=== PATIENT | female | born 1990 | race Caucasian/White ===

== ENCOUNTER 2018-12-24 17:22 | Emergency (ER) | payer OTHER ==
--- NOTE | 2018-12-24 18:43 | ER Document Report ---
ED Medical Screen (RME) - General Chief Complaint: Abdominal Pain Stated Complaint: ABDOMINAL PAIN Time Seen by Provider: 12/24/18 18:39 Mode of Arrival: Ambulatory Information source: Patient Notes: This 28-year-old female presents emergency department with complaints of lower abdominal pain that started this morning. She reports some vaginal spotting. Patient is approximately 9 weeks. G6, P1. Patient has had 4 miscarriages. She denies other symptoms such as fever vomiting diarrhea. She denies pain with void. She reports she was diagnosed with a subchorionic bleed last week. I have greeted and performed a rapid initial assessment of this patient. A comprehensive ED assessment and evaluation of the patient, analysis of test results and completion of the medical decision making process will be conducted by additional ED providers. Dictation of this chart was performed using voice recognition software; therefore, there may be some unintended grammatical errors. TRAVEL OUTSIDE OF THE [place] IN LAST 30 DAYS: No - Related Data Allergies/Adverse Reactions: No Known Allergies Allergy (Unverified 12/24/18 17:36) Physical Exam - Vital signs Vitals: Temp Pulse Resp BP Pulse Ox 98.0 F 83 20 134/82 H 97 12/24/18 17:40 12/24/18 17:40 12/24/18 17:40 12/24/18 17:40 12/24/18 17:40 Course - Vital Signs Vital signs: Temp Pulse Resp BP Pulse Ox 98.0 F 83 20 134/82 H 97 12/24/18 17:40 12/24/18 17:40 12/24/18 17:40 12/24/18 17:40 12/24/18 17:40
[2018-12-24 19:31] LABS: ABSOLUTE EOSINOPHILS # (AUTO) 0.1 10^3/uL (0.0-0.6); ABSOLUTE LYMPHOCYTES (AUTO) 1.8 10^3/uL (0.5-4.7); ABSOLUTE MONOCYTES (AUTO) 0.4 10^3/uL (0.1-1.4); ABSOLUTE NEUT (AUTO) 3.8 10^3/uL (1.7-8.2); BASOPHILS % (AUTO) 0.2 % (0-2); EOSINOPHILS % (AUTO) 1.9 % (0-6); HEMATOCRIT 38.7 % (36.0-47.0); HEMOGLOBIN 13.4 g/dL (12.0-15.5); MEAN CORPUSCULAR HEMOGLOBIN 30.4 pg (27.0-33.4); MEAN CORPUSCULAR HGB CONC 34.5 g/dL (32.0-36.0); MEAN CORPUSCULAR VOLUME 88 fl (80-97); MONOCYTES % (AUTO) 6.3 % (3-13); PLATELET COUNT 140 10^3/uL (150-450); RED CELL DISTRIBUTION WIDTH 13.9 % (11.5-14.0); SEGMENTED NEUTROPHILS % (AUTO) 62.6 % (42-78); TOTAL CELLS COUNTED % (AUTO) 100 %
[2018-12-24 19:41] LABS: APPEARANCE,URINE CLEAR; BILIRUBIN,URINE NEGATIVE (NEGATIVE); COLOR,URINE YELLOW; GLUCOSE, URINE NEGATIVE (NEGATIVE); KETONES,URINE NEGATIVE (NEGATIVE); LEUKOCYTE ESTERASE,URINE NEGATIVE (NEGATIVE); NITRITE,URINE NEGATIVE (NEGATIVE); PROTEIN,URINE NEGATIVE (NEGATIVE); URINE SPECIFIC GRAVITY 1.027; UROBILINOGEN,URINE NEGATIVE mg/dL (<2.0)
[2018-12-24 19:54] LABS: ALBUMIN 4.4 g/dL (3.5-5.0); ALKALINE PHOSPHATASE 45 U/L (38-126); ANION GAP 10 (5-19); ASPARTATE AMINO TRANSFERASE 18 U/L (14-36); BILIRUBIN,DIRECT 0.3 mg/dL (0.0-0.4); BILIRUBIN,TOTAL 0.3 mg/dL (0.2-1.3); BLOOD UREA NITROGEN 13 mg/dL (7-20); CARBON DIOXIDE 23 mmol/L (22-30); CHLORIDE 104 mmol/L (98-107); GLUCOSE 100 mg/dL (75-110); POTASSIUM 3.6 mmol/L (3.6-5.0)
--- NOTE | 2018-12-24 21:31 | RADIOLOGY REPORT (SQ) ---
US PELVIS EXAM DATE: 12/24/2018 6:42 PM CDT HISTORY: Early . Pelvic pain. COMPARISON: None. TECHNIQUE: Grayscale, color Doppler, and spectral Doppler ultrasound images of the pelvis were obtained. FINDINGS: There is an intrauterine gestational sac with a yolk sac and pole visualized. The crown-rump length measures 2.34 cm, corresponding to 9 weeks 0 days of . The heart rate is 165 bpm. There is a 1.9 cm adjacent subchorionic hemorrhage. Both ovaries are normal in size and contain normal follicles, with the right ovary measuring 4.1 cm, and the left ovary measuring 4.6 cm. Normal color Doppler blood flow is seen in both ovaries. No pelvic free fluid. IMPRESSION: 1. Single live IUP with estimated gestational age 9 weeks 0 days. 2. Small adjacent subchorionic hemorrhage; attention on follow-up imaging is suggested.
[2018-12-24] MEDS ORDERED: ACETAMINOPHEN 325 MG TABLET PO ONE (21:41)
[2018-12-24 21:43] VITALS: BP 119/66
--- NOTE | 2018-12-24 22:08 | ER Document Report ---
ED General - General Chief Complaint: Abdominal Pain Stated Complaint: ABDOMINAL PAIN Time Seen by Provider: 12/24/18 18:39 Mode of Arrival: Ambulatory TRAVEL OUTSIDE OF THE [place] IN LAST 30 DAYS: No - HPI Notes: Patient is a 28-year-old female approximately 9 weeks gestation who presents emergency department for evaluation of vaginal bleeding and lower abdominal pain. Pain started today. She has had some intermittent vaginal bleeding. Is bright red, scant, usually more when she sits down. She was diagnosed with a subchorionic hemorrhage. She denies any other vaginal discharge. No fever chills. No nausea or vomiting. Taking her vitamin as instructed. - Related Data Allergies/Adverse Reactions: No Known Allergies Allergy (Unverified 12/24/18 17:36) Home Medications: vitamin Past Medical History - General Information source: Patient - Social History Smoking Status: Current Some Day Smoker Chew tobacco use (# tins/day): No Frequency of alcohol use: None Drug Abuse: None Family History: Reviewed & Not Pertinent Patient has suicidal ideation: No Patient has homicidal ideation: No Renal/ Medical History: Denies: Hx Peritoneal Dialysis Past Surgical History: Reports: Hx Cholecystectomy Review of Systems - Review of Systems Constitutional: No symptoms reported EENT: No symptoms reported Cardiovascular: No symptoms reported Respiratory: No symptoms reported Gastrointestinal: No symptoms reported Genitourinary: No symptoms reported Female Genitourinary: See HPI Musculoskeletal: No symptoms reported Skin: No symptoms reported Neurological/Psychological: No symptoms reported Physical Exam - Vital signs Vitals: Temp Pulse Resp BP Pulse Ox 98.0 F 83 20 134/82 H 97 12/24/18 17:40 12/24/18 17:40 12/24/18 17:40 12/24/18 17:40 12/24/18 17:40 - Notes Notes: Vital signs reviewed, please refer to chart. Head is normocephalic, atraumatic. Pupils equal round, reactive to light. Neck is supple without meningismus. Heart is regular rate and rhythm. Lungs are clear to auscultation bilaterally. Abdomen is soft, nontender, normoactive bowel sounds throughout. Extremities without cyanosis, clubbing. Posterior calves are nontender. Peripheral pulses are equal. Skin is warm and dry. Patient is awake, alert, neurological exam is nonfocal. Course - Re-evaluation Re-evalutation: 12/24/18 22:05 Patient is a 28-year-old female, approximately 9 weeks , who presents emergency department for vaginal bleeding. She is already had a known subchorionic hemorrhage. Ultrasound today verified this as well. Otherwise a normal IUP was identified. She is found to be Rh+, so no RhoGam indicated. The patient was urged to quit smoking. She is to follow-up pelvic rest guidelines. She is to follow-up with [facility], return to the ED with worsening or concerning symptoms of any sort. - Vital Signs Vital signs: Temp Pulse Resp BP Pulse Ox 98.2 F 72 16 119/66 97 12/24/18 21:42 12/24/18 21:42 12/24/18 21:42 12/24/18 21:42 12/24/18 21:42 - Laboratory Result Diagrams: 12/24/18 19:10 12/24/18 19:10 Laboratory results interpreted by me: 12/24/18 12/24/18 19:10 19:10 Plt Count 140 L Creatinine 0.49 L Beta HCG, Quant 63886.00 H - Diagnostic Test Radiology reviewed: Reports reviewed Radiology results interpreted by me: 12/24/18 22:05 Transvaginal US 12/24/18 18:42 IMPRESSION: 1. Single live IUP with estimated gestational age 9 weeks 0 days. 2. Small adjacent subchorionic hemorrhage; attention on follow-up imaging is suggested. Discharge - Discharge Clinical Impression: Subchorionic hemorrhage in first trimester Qualifiers: Fetus number: single or unspecified fetus Qualified Code(s): O41.8X10 - Other specified disorders of amniotic fluid and membranes, first trimester, not applicable or unspecified; O46.8X1 - Other antepartum hemorrhage, first trimester Condition: Stable Disposition: HOME, SELF-CARE Additional Instructions: There was a small subchorionic hemorrhage, again visualized on your ultrasound. Otherwise fetus looks normal at this time. Continue pelvic rest instructions as discussed. Follow-up with your OB at [facility] next week. Return to the emergency department with worsening or new concerning symptoms of any sort.
== END 2018-12-24 22:16 | disposition home or self-care (01) ==
LOC: ER 17:22
DX: O41.8X10 Other specified disorders of amniotic fluid and membranes, first trimester, not applicable or unspecified (principal); R10.30 Lower abdominal pain, unspecified; Z3A.09 9 weeks gestation of pregnancy; Z90.49 Acquired absence of other specified parts of digestive tract
CPT/HCPCS: 36415; 76830; 80053; 81001; 84702; 85025; 86900; 86901; 93976

== ENCOUNTER 2018-12-25 21:22 | Emergency (ER) | payer OTHER ==
[2018-12-25 22:24] LABS: ABSOLUTE EOSINOPHILS # (AUTO) 0.1 10^3/uL (0.0-0.6); ABSOLUTE LYMPHOCYTES (AUTO) 1.8 10^3/uL (0.5-4.7); ABSOLUTE MONOCYTES (AUTO) 0.3 10^3/uL (0.1-1.4); ABSOLUTE NEUT (AUTO) 3.6 10^3/uL (1.7-8.2); BASOPHILS % (AUTO) 0.3 % (0-2); EOSINOPHILS % (AUTO) 1.9 % (0-6); HEMATOCRIT 39.3 % (36.0-47.0); HEMOGLOBIN 13.7 g/dL (12.0-15.5); LYMPHOCYTES % (AUTO) 31.2 % (13-45); MEAN CORPUSCULAR HEMOGLOBIN 30.5 pg (27.0-33.4); MEAN CORPUSCULAR HGB CONC 34.9 g/dL (32.0-36.0); MEAN CORPUSCULAR VOLUME 88 fl (80-97); MONOCYTES % (AUTO) 5.9 % (3-13); PLATELET COUNT 138 10^3/uL (150-450); RED BLOOD COUNT 4.49 10^6/uL (3.72-5.28); RED CELL DISTRIBUTION WIDTH 13.4 % (11.5-14.0); SEGMENTED NEUTROPHILS % (AUTO) 60.7 % (42-78); TOTAL CELLS COUNTED % (AUTO) 100 %; WHITE BLOOD COUNT 5.9 10^3/uL (4.0-10.5)
[2018-12-25 22:55] LABS: APPEARANCE,URINE SLIGHTLY-CLOUDY; BILIRUBIN,URINE NEGATIVE (NEGATIVE); COLOR,URINE YELLOW; GLUCOSE, URINE NEGATIVE (NEGATIVE); KETONES,URINE NEGATIVE (NEGATIVE); LEUKOCYTE ESTERASE,URINE TRACE (NEGATIVE); NITRITE,URINE NEGATIVE (NEGATIVE); PROTEIN,URINE NEGATIVE (NEGATIVE); URINE SPECIFIC GRAVITY 1.025; UROBILINOGEN,URINE NEGATIVE mg/dL (<2.0)
[2018-12-25] MEDS ORDERED: ACETAMINOPHEN 325 MG TABLET PO ONE (23:55)
--- NOTE | 2018-12-26 00:04 | ER Document Report ---
ED General - General Chief Complaint: Vaginal Bleeding Stated Complaint: CRAMPS AND BLEEDING Time Seen by Provider: 12/25/18 23:35 Mode of Arrival: Ambulatory Information source: Patient TRAVEL OUTSIDE OF THE [place] IN LAST 30 DAYS: No - HPI Notes: Patient is a 28-year-old female G6, P1 with 4 previous miscarriages and history of high risk presents with reports she is 9 weeks , Rh+, started with mild vaginal bleeding this past week and was seen yesterday and showed evidence that the patient by ultrasound had a subchorionic bleed but a viable 9-week . The patient reports since then her pelvic crampiness has worsened and she reports the bleeding has increased although the bleeding is not equal to a normal menstrual cycle bleeding. She denies any fever or chills she reports no cough or congestion or chest pain or difficulty breathing or constipation or diarrhea. Urinalysis was negative yesterday and patient had a normal CBC. Patient has a history of polycystic ovarian disease. - Related Data Allergies/Adverse Reactions: No Known Allergies Allergy (Unverified 12/24/18 17:36) Past Medical History - General Information source: Patient - Social History Smoking Status: Current Every Day Smoker Chew tobacco use (# tins/day): No Frequency of alcohol use: None Drug Abuse: None Lives with: Family Family History: Reviewed & Not Pertinent Patient has suicidal ideation: No Patient has homicidal ideation: No Renal/ Medical History: Denies: Hx Peritoneal Dialysis Past Surgical History: Reports: Hx Cholecystectomy Review of Systems - Review of Systems -: Yes All other systems reviewed and negative Physical Exam - Vital signs Vitals: Temp Pulse Resp BP Pulse Ox 98.4 F 80 18 121/62 98 12/25/18 21:42 12/25/18 21:42 12/25/18 21:42 12/25/18 21:42 12/25/18 21:42 - Notes Notes: PHYSICAL EXAMINATION: GENERAL: Well-appearing, well-nourished and in no acute distress. HEAD: Atraumatic, normocephalic. EYES: Pupils equal round and reactive to light, extraocular movements intact, conjunctiva are normal. ENT: Nares patent, oropharynx clear without exudates. Moist mucous membranes. NECK: Normal range of motion, supple without lymphadenopathy LUNGS: Breath sounds clear to auscultation bilaterally and equal. No wheezes rales or rhonchi. HEART: Regular rate and rhythm without murmurs ABDOMEN: Soft, nondistended abdomen. No guarding, no rebound. No masses appreciated. Tenderness appreciated suprapubic region. No rebound or guarding. Female : Genitourinary exam shows normal external female genitalia cervix is benign and is thick and closed but there is mild bleeding noted. No other discharge appreciated. Patient has mild uterine tenderness and no adnexal mass or tenderness. Musculoskeletal: Normal range of motion, no pitting or edema. No cyanosis. NEUROLOGICAL: Cranial nerves grossly intact. Normal speech, normal gait. Normal sensory, motor exams PSYCH: Normal mood, normal affect. SKIN: Warm, Dry, normal turgor, no rashes or lesions noted. Course - Re-evaluation Re-evalutation: 12/26/18 00:12 hCG quantitative in 1 day showed a slight drop of about 1000. Although the peak of hCG quantitative's is from 8 to 11 weeks, this is concerning for patient having a miscarriage in process. CBC was unchanged. Urinalysis showed some contaminant. 12/26/18 02:02 Patient's pain was somewhat well controlled and there was no more significant b leeding. She felt stable for outpatient management. I discussed with the patient possibility of her possibly losing the and she understood the risk. She will follow-up with [facility] tomorrow. - Vital Signs Vital signs: Temp Pulse Resp BP Pulse Ox 98.4 F 68 18 103/54 L 97 12/26/18 00:32 12/26/18 00:32 12/26/18 00:32 12/26/18 00:32 12/26/18 00:32 - Laboratory Result Diagrams: 12/25/18 22:12 Laboratory results interpreted by me: 12/25/18 12/25/18 12/25/18 22:12 22:12 22:38 Plt Count 138 L Beta HCG, Quant 91865.00 H Urine Blood LARGE H Ur Leukocyte Esterase TRACE H Discharge - Discharge Clinical Impression: Threatened miscarriage Condition: Stable Disposition: HOME, SELF-CARE Instructions: Threatened Miscarriage ([facility]) Additional Instructions: No heavy lifting. No intercourse. Return to the emergency department in case of fever or severe bleeding, soaking more than 2 pads per hour. No use of tampons. Drink plenty of fluids. You may take Tylenol as directed for pain. Follow-up with your [facility] tomorrow. Forms: Return to Work
[2018-12-26 00:19] LABS: RBCS (WET MOUNT) 2+ RBCS SEEN; T.VAGINALIS (WET MOUNT) NO TRICHOMONAS SEEN; WBCS (WET MOUNT) 1+ WBCS SEEN; YEAST (WET MOUNT) NO YEAST SEEN
[2018-12-26 01:39] LABS: CHLAM PCR NOT DETECTED (NOT DETECT)
[2018-12-26 02:14] VITALS: BP 118/70
== END 2018-12-26 02:14 | disposition home or self-care (01) ==
LOC: ER 21:22
DX: O20.0 Threatened abortion (principal); O99.331 Smoking (tobacco) complicating pregnancy, first trimester; Z3A.09 9 weeks gestation of pregnancy
CPT/HCPCS: 36415; 81001; 84702; 85025; 86900; 86901; 87210; 87491; 87591; 99283